=== PATIENT | male | born 1990 | race Caucasian/White ===

== ENCOUNTER 2017-01-24 04:01 | Emergency (ER) | payer SELFPAY ==
[2017-01-24] MEDS ORDERED: HYDROMORPHONE HCL INJ/PF 2 MG/ML AMPULE IM ONE (04:57)
[2017-01-24] MEDS ORDERED: LIDOCAINE 1%/EPINEPHRINE INJ 20 ML VIAL INJ ONE (04:57)
[2017-01-24] MEDS ORDERED: ONDANSETRON 4 MG TAB.RAPDIS PO ONE (04:58)
--- NOTE | 2017-01-24 05:01 | ER Document Report ---
ED Skin Rash/Insect Bite/Abscs - General Chief Complaint: Abscess Stated Complaint: LOWER BODY PAIN Time Seen by Provider: 01/24/17 04:49 Notes: Patient is a 26-year-old male that comes emergency department for chief complaint of lower back pain, he states that symptoms started about 1.5 weeks ago, he states ibuprofen does seem to help and he has been taking this, he states he went to a chiropractor but his symptoms continued, he states that he noticed blood coming from the lower back area earlier tonight. Patient also states she has had a few chills, no fever. No past medical history including no daily medications and no surgeries. TRAVEL OUTSIDE OF THE [place] IN LAST 30 DAYS: Yes COUNTRY [facility]EL[facility] TO[facility]FROM: [facility] - Related Data Allergies/Adverse Reactions: No Known Allergies Allergy (Unverified 01/24/17 04:07) Past Medical History - General Information source: Patient, Parent - Social History Smoking Status: Never Smoker Frequency of alcohol use: None Drug Abuse: None Lives with: Family Family History: Reviewed & Not Pertinent Patient has suicidal ideation: No Patient has homicidal ideation: No - Medical History Medical History: Negative Renal/ Medical History: Denies: Hx Peritoneal Dialysis Surgical Hx: Negative - Immunizations Immunizations up to date: Yes Hx Diphtheria, Pertussis, Tetanus Vaccination: Yes Review of Systems - Review of Systems Constitutional: No symptoms reported EENT: No symptoms reported Cardiovascular: No symptoms reported Respiratory: No symptoms reported Gastrointestinal: No symptoms reported Genitourinary: No symptoms reported Male Genitourinary: No symptoms reported Musculoskeletal: No symptoms reported Skin: See HPI Hematologic/Lymphatic: No symptoms reported Neurological/Psychological: No symptoms reported Physical Exam - Vital signs Vitals: Temp Pulse Resp BP Pulse Ox 98.3 F 91 16 124/66 98 01/24/17 04:03 01/24/17 04:03 01/24/17 04:03 01/24/17 04:03 01/24/17 04:03 Interpretation: Normal - General General appearance: Appears well, Alert In distress: None - sitting awkwardly but not in distress - HEENT Head: Normocephalic, Atraumatic Eyes: Normal Conjunctiva: Normal Extraocular movements intact: Yes Eyelashes: Normal Pupils: PERRL Neck: Normal - Respiratory Respiratory status: No respiratory distress Chest status: Nontender Breath sounds: Normal Chest palpation: Normal - Cardiovascular Rhythm: Regular Heart sounds: Normal auscultation Murmur: No - Abdominal Inspection: Normal Distension: No distension Bowel sounds: Normal Tenderness: Nontender Organomegaly: No organomegaly - Back Back: Normal, Nontender - Extremities General upper extremity: Normal inspection, Nontender, Normal color, Normal ROM , Normal temperature General lower extremity: Normal inspection, Nontender, Normal color, Normal ROM , Normal temperature, Normal weight bearing. No: Lore's sign - Neurological Neuro grossly intact: Yes Cognition: Normal Orientation: AAOx4 Delta Coma Scale Eye Opening: Spontaneous Delta Coma Scale Verbal: Oriented [place]rem[place] Coma Scale Motor: Obeys Commands [place]rem[place]ne Coma Scale Total: 15 Speech: Normal Motor strength normal: LUE, RUE, LLE, RLE Sensory: Normal - Psychological Associated symptoms: Normal affect, Normal mood - Skin Skin Temperature: Warm Skin Moisture: Dry Skin Color: Normal Skin irregularity: Abscess - Upper left gluteal cleft fold with induration, fluctuance, erythema, and a abscess head noted over the pilonidal cyst area Course - Re-evaluation Re-evalutation: Patient consistent with pilonidal abscess, area was incised and drained, treatment, discussed return precautions, discussed potential need for surgical follow-up if this re-occurs. Patient and mother state understanding and agreement - Vital Signs Vital signs: Temp Pulse Resp BP Pulse Ox 98.3 F 82 16 128/54 H 96 01/24/17 04:03 01/24/17 05:55 01/24/17 05:55 01/24/17 05:55 01/24/17 05:55 Procedures - Incision and Drainage left gluteal cleft Type: Single Anesthetic type: 1% Lidocaine w/epi mL's of anesthetic: 8 Blade size: 11 I&D procedure: Iodoform packing placed, Other - surgical cleanser Incision Method: Incision made by scalpel Amount/type of drainage: mixed blood and purulent matter, large amount Notes: Cleaned with surgical cleanser, anesthesia provided with 1% lidocaine with epinephrine, incision made with scalpel, large amount of purulent and bloody material expressed, explored, irrigated, because of deep pocket large amount of packing was placed. Dressing placed. Discharge - Discharge Clinical Impression: Abscess Condition: Stable Disposition: HOME, SELF-CARE Additional Instructions: The abscess has been drained, the packing needs to come out in 2 days, this most likely will need to be replaced in 2 days, follow-up with primary care or return to emergency department if needed. Keep absorbing dressing over the area , take the antibiotic as prescribed, the pain medication if needed. Clean with soap and water, avoid soaking. Return to emergency department sooner for any concerning or worsening symptoms including spreading redness, fever, vomiting, or any other concerning symptoms Prescriptions: Oxycodone HCl/Acetaminophen [Percocet 5-325 mg Tablet] 1 - 2 tab PO Q4H PRN #15 tablet PRN Reason: Sulfamethoxazole/Trimethoprim [Bactrim Ds Tablet] 1 each PO BID #14 tablet Forms: Return to Work
[2017-01-24 06:03] VITALS: BP 128/54
== END 2017-01-24 05:55 | disposition home or self-care (01) ==
LOC: ER 04:01
PROC: 0H98XZZ Drainage of Buttock Skin, External Approach (ICD-10-PCS; principal; 2017-01-24)
DX: L02.31 Cutaneous abscess of buttock (principal); M54.5 Low back pain
CPT/HCPCS: 99283; 10060; S0119; J3490; J1170; A6266